=== PATIENT | male | born 1970 | race Caucasian/White ===

== ENCOUNTER 2017-09-01 01:39 | Inpatient (IN) | payer MEDICAID ==
[~2017-09-01] VITALS: Ht 160 cm; Wt 66.9 kg
[2017-09-01 01:44] VITALS: Ht 160 cm; Wt 66.9 kg
[2017-09-01 02:29] LABS: microscopic required? NO
[2017-09-01 02:33] LABS: CALCIUM 8.9 mg/dL (8.5-10.1); CARBON DIOXIDE 28.5 mmol/L (21-32); CHLORIDE SERUM 102 mmol/L (98-107); CREATININE SERUM 0.9 mg/dL (0.7-1.3); GFR1 > 60 mL/min; GLUCOSE SERUM 137 mg/dL (74-106); SODIUM SERUM 138 mmol/L (136-145)
[2017-09-01 02:35] LABS: BASOPHIL % 0.1 % (0-2); PLATELET COUNT 205 x10^3mcL (130-400); RED CELL DISTRIBUTION WIDTH 13.4 % (11.5-14.5)
[2017-09-01 02:38] LABS: ALBUMIN 3.8 g/dL (3.4-5.0); ALKALINE PHOSPHATASE 58 U/L (46-116); ALT/SGPT 24 U/L (16-63); AST/SGOT 27 U/L (15-37); BILIRUBIN TOTAL 0.36 mg/dL (0.20-1.00); LIPASE 140 IU/L (73-393); TOTAL PROTEIN, SERUM 7.5 g/dL (6.4-8.2)
[2017-09-01 02:48] LABS: UA SPECIFIC GRAVITY >=1.030 (1.005-1.035); urine erythrocyte NEGATIVE (NEGATIVE)
[2017-09-01 05:51] VITALS: BP 104/65
[2017-09-01 05:52] LABS: AMPHETAMINE QUAL UR NONE DETECTED (NEG <=1000)
[2017-09-01 05:56] LABS: MAGNESIUM 1.9 mg/dL (1.8-2.4); PHOSPHOROUS 2.9 mg/dL (2.5-4.9)
[2017-09-01 05:58] LABS: CHOLESTEROL/HDL RATIO 2.8
[2017-09-01 06:00] LABS: T3 TOTAL 1.07 ng/mL
[2017-09-01 06:09] LABS: FREE T4 0.95 ng/dL (0.76-1.46); FREE THYROXINE INDEX 2.5 ug/dL (1.4-4.5)
[2017-09-01 09:27] VITALS: BP 94/64
[2017-09-01 14:25] VITALS: BP 105/68
[2017-09-01 16:51] VITALS: BP 96/55
[2017-09-01 20:09] VITALS: BP 93/53
[2017-09-02 05:03] VITALS: BP 86/54
[2017-09-02 06:45] LABS: BASOPHIL % 0.2 % (0-2); PLATELET COUNT 183 x10^3mcL (130-400); RED CELL DISTRIBUTION WIDTH 13.2 % (11.5-14.5)
[2017-09-02 06:54] LABS: CALCIUM 8.3 mg/dL (8.5-10.1); CARBON DIOXIDE 29.9 mmol/L (21-32); CHLORIDE SERUM 107 mmol/L (98-107); CREATININE SERUM 0.9 mg/dL (0.7-1.3); GFR1 > 60 mL/min; GLUCOSE SERUM 103 mg/dL (74-106); MAGNESIUM 1.9 mg/dL (1.8-2.4); PHOSPHOROUS 3.3 mg/dL (2.5-4.9); POTASSIUM SERUM 4.4 mmol/L (3.5-5.1); SODIUM SERUM 144 mmol/L (136-145)
[2017-09-02 08:22] VITALS: BP 131/80; BP 84/48
[2017-09-02 12:02] VITALS: BP 102/63
[2017-09-02 16:22] VITALS: BP 101/63; BP 125/76
[2017-09-02 21:55] VITALS: BP 95/52
[2017-09-03 05:45] VITALS: BP 96/60
[2017-09-03 07:03] LABS: PLATELET COUNT 199 x10^3mcL (130-400); RED CELL DISTRIBUTION WIDTH 13.4 % (11.5-14.5)
[2017-09-03 07:18] LABS: CALCIUM 8.9 mg/dL (8.5-10.1); CARBON DIOXIDE 30.4 mmol/L (21-32); CHLORIDE SERUM 105 mmol/L (98-107); CREATININE SERUM 0.8 mg/dL (0.7-1.3); GFR1 > 60 mL/min; GLUCOSE SERUM 93 mg/dL (74-106); MAGNESIUM 1.8 mg/dL (1.8-2.4); PHOSPHOROUS 3.3 mg/dL (2.5-4.9); POTASSIUM SERUM 4.1 mmol/L (3.5-5.1); SODIUM SERUM 140 mmol/L (136-145)
[2017-09-03 07:59] LABS: ATYPICAL LYMPH 3 %; BAND NEUTROPHIL 0 % (0-10); BASOPHIL 1 % (0-2); MONOCYTE 4 % (0-7); SEGMENTED NEUTROPHILS 41 % (37-75); rbc morphology (normal/abnorm) ABNORMAL (NORMAL)
[2017-09-03 08:00] LABS: PLATELET MORPHOLOGY PLATELETS DECREASED
[2017-09-03 10:05] VITALS: BP 99/64
[2017-09-03 11:46] VITALS: BP 99/64
[2017-09-03 11:48] VITALS: BP 99/64
== END 2017-09-03 12:15 | disposition home or self-care (01) | DRG 263 ==
LOC: ED 01:39 → EDBD 01:39 → DU 04:53
PROVIDERS: Emergency Medicine; Family Medicine; Surgery
PROC: 0FT44ZZ Resection of Gallbladder, Percutaneous Endoscopic Approach (ICD-10-PCS; principal; 2017-09-01 11:30)
DX: K80.62 Calculus of gallbladder and bile duct with acute cholecystitis without obstruction (principal); N17.0 Acute kidney failure with tubular necrosis; E87.6 Hypokalemia; E78.5 Hyperlipidemia, unspecified; F17.210 Nicotine dependence, cigarettes, uncomplicated; Z90.49 Acquired absence of other specified parts of digestive tract; D72.829 Elevated white blood cell count, unspecified
CPT/HCPCS: 84439; J0330; J0690; J0694; J2175; J2250; J2405; J2704; J3010; J3480; J3490; J7030; J7120; Q0092